=== PATIENT | female | born 1980 | race Caucasian/White ===

== ENCOUNTER 2016-10-16 18:11 | Emergency (ER) | payer SELFPAY ==
[~2016-10-16] VITALS: Ht 167.6 cm; Wt 182.0 kg
[2016-10-16 18:53] VITALS: Ht 167.6 cm; Wt 182.0 kg
== END 2016-10-16 23:32 | disposition left against medical advice (07) ==
LOC: FTE 18:11
DX: Z53.21 Procedure and treatment not carried out due to patient leaving prior to being seen by health care provider (principal)